=== PATIENT | male | born 1990 | race Caucasian/White ===

== ENCOUNTER 2017-08-06 12:54 | Emergency (ER) | payer MEDICAID ==
[2017-08-06] MEDS ORDERED: cefTRIAXone 1 GM, Lidocaine 1% 2.1 ML IM ONE ×2 (13:20)
[2017-08-06] MEDS ORDERED: Take Home: Clindamycin HCl 150 MG Cap, 6 Cap Pack PO ONE ×2 (13:21)
--- NOTE | 2017-08-06 13:24 | EDM.PDOC ---
ED HPI GENERAL MEDICAL PROBLEM - General Chief Complaint: ENT Problem Stated Complaint: tooth abscess Time Seen by Provider: 08/06/17 13:16 Source of Information: Reports: Patient History Limitations: Reports: No Limitations - History of Present Illness INITIAL COMMENTS - FREE TEXT/NARRATIVE: Patient comes into the emergency department for increased swelling in the right lower jaw related to a tooth abscess. Patient has had poor dentition for greater than 2 years. He has been told multiple times that he needs extractions of multiple teeth. He often has infections that occur requiring antibiotic treatment. He does not have dental insurance and often uses emergency department for his dental cares. He denies brushing his teeth on a regular basis however he does state that he does use mouthwash regular basis. Denies any fever, nausea, diarrhea. He normally does not have much pain when he does get these infections but does notice the increase in swelling and more of a foul breath is noted. Onset: Gradual Right Lower Face Pain Score (Numeric/FACES): 1 - Related Data Allergies Allergy/AdvReac Type Severity Reaction Status Date / Time No Known Allergies Allergy Verified 08/06/17 13:08 Home Meds: Home Meds Clindamycin HCl 300 mg PO TID #7 capsule 08/06/17 [Rx] Past Medical History HEENT History: Reports: Other (See Below) Other HEENT History: Dental carries Social & Family History - Tobacco Use Smoking Status *Q: Current Every Day Smoker Years of Tobacco use: 7 Packs/Tins Daily: 0.9 - Recreational Drug Use Recreational Drug Use: No ED ROS ENT - Review of Systems Review Of Systems: See Below Constitutional: Reports: No Symptoms HEENT: Reports: Other (multiple dental caries, dental decay, multiple tooth fractures of upper jaw) Respiratory: Reports: No Symptoms Cardiovascular: Reports: No Symptoms GI/Abdominal: Reports: No Symptoms Musculoskeletal: Reports: No Symptoms Skin: Reports: No Symptoms Neurological: Reports: No Symptoms ED EXAM, ENT - Physical Exam Exam: See Below Exam Limited By: No Limitations General Appearance: Alert, WD/WN, No Apparent Distress Mouth/Throat: Dental Abcess, Dental Tenderness, Gum Swelling, Other (severe dental decay with green gums noted, multiple tooth fractures of the upper jaw line. Abcess noted lower right jaw line. no redness or warmth noted on the cheek. ). No: Drooling, Dry Mucous Membrane, Lip Swelling, Muffled Voice, Throat Swelling, Tongue Swelling, Tonsillar Erythema, Tonsillar Exudates, Tonsillar Swelling, Uvular Deviation, Uvular Edema Skin: Warm, Dry, Intact Course - Vital Signs Last Recorded V/S: Last Vital Signs Temp 36.3 C 08/06/17 13:05 Pulse 87 08/06/17 13:05 Resp 16 08/06/17 13:05 BP 108/73 08/06/17 13:05 Pulse Ox 97 08/06/17 13:05 Departure - Departure Time of Disposition: 13:35 Disposition: Home, Self-Care 01 Condition: Fair Clinical Impression: Dental caries, Dental abscess, Dental caries extending into dentin - Discharge Information Instructions: Dental Abscess, [id number] Forms: ED Department Discharge Additional Instructions: 1. It is recommended to call [facility] next week and schedule an appointment for multiple extraction of teeth 2. Continue antibiotics until completely gone 3. Increase oral hygiene when possible 4. Decrease sugary beverages 5. Follow-up with primary PCP if worsening symptoms occur 6. Can take [id number] Tylenol and ibuprofen for pain or discomfort 7. Use ice to decrease swelling of the jaw 3 times a day for 20 minute intervals
== END 2017-08-06 13:56 | disposition home or self-care (01) ==
LOC: VM.ED 12:54
DX: K04.7 Periapical abscess without sinus (principal); K03.81 Cracked tooth; K02.9 Dental caries, unspecified; F17.210 Nicotine dependence, cigarettes, uncomplicated
CPT/HCPCS: 96372; 99283; A9270; J0696

== ENCOUNTER 2020-08-15 23:30 | Emergency (ER) | payer SELFPAY ==
[2020-08-15] MEDS ORDERED: Take Home: Amoxicillin/Clavulanate K 875-125 MG Tab, 2 Tab Pack PO ONE (23:42)
[2020-08-15] MEDS ORDERED: Take Home: traMADol 50 MG, 4 Tab Pack PO ONE (23:42)
--- NOTE | 2020-08-16 11:06 | EDM.PDOC ---
ED HPI GENERAL MEDICAL PROBLEM - General Chief Complaint: General Stated Complaint: Tooth Pain Time Seen by Provider: 08/15/20 23:38 Source of Information: Reports: Patient History Limitations: Reports: No Limitations - History of Present Illness INITIAL COMMENTS - FREE TEXT/NARRATIVE: Pt. presents to ER with complaints of dental pain that started a couple of hours before presenting to ER. Denies any trauma. Pt. has a history of advanced tooth decay and frequent dental abscesses/infections. He states that his dentist is [facility], and they are working on a long-term plan regarding his teeth. Denies any fever or chills. No sore thoat. No problems swallowing/managing his oral secretions. 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 [No Known Home Meds] 08/15/20 [History] Past Medical History HEENT History: Reports: Other (See Below) Other HEENT History: Dental carries Social & Family History - Tobacco Use Tobacco Use Status *Q: Current Every Day Tobacco User Years of Tobacco use: 12 Packs/Tins Daily: 1 - Recreational Drug Use Recreational Drug Use: Yes Recreational Drug Type: Reports: Marijuana/Hashish Recreational Drug Use Frequency: Rarely ED ROS GENERAL - Review of Systems Review Of Systems: See Below HEENT: Reports: Dental Pain Respiratory: Reports: No Symptoms Cardiovascular: Reports: No Symptoms Endocrine: Reports: No Symptoms GI/Abdominal: Reports: No Symptoms : Reports: No Symptoms Musculoskeletal: Reports: No Symptoms Skin: Reports: No Symptoms Neurological: Reports: No Symptoms Psychiatric: Reports: No Symptoms ED EXAM, GENERAL - Physical Exam Exam: See Below Exam Limited By: No Limitations General Appearance: Alert, WD/WN, No Apparent Distress Throat/Mouth: Other (Teeth are decayed, discolored and fractured. It appears the pain is originating from a L upper molar. No obvious abscess noted. Adjacent teeth have active decay as well. No unilateral swelling to hypopharyx.) Course - Vital Signs Last Recorded V/S: Last Vital Signs Temp 36.3 C 08/15/20 23:42 Pulse 60 08/15/20 23:42 Resp 17 08/15/20 23:42 BP 134/81 08/15/20 23:42 Pulse Ox 99 08/15/20 23:42 - Orders/Labs/Meds Meds: Medications Discontinued Medications Generic Name Dose Route Start Last Admin Trade Name Kobe PRN Reason Stop Dose Admin Amoxicillin/Clavulanate Potassium 1 packet 08/15/20 23:42 08/15/20 23:47 Take Home: Amoxicillin/Clavulanate K 875-125 Mg Tab, 2 Tab Pack PO 08/15/20 23:43 1 packet ONETIME ONE Administration Tramadol HCl 1 packet 08/15/20 23:42 08/15/20 23:47 Take Home: Tramadol 50 Mg, 4 Tab Pack PO 08/15/20 23:43 1 packet ONETIME ONE Administration Departure - Departure Time of Disposition: 23:58 Disposition: Home, Self-Care 01 Condition: Good Clinical Impression: Dental infection - Discharge Information Instructions: Amoxicillin; Clavulanic Acid Tablets, Dental Abscess, [id number], Ibuprofen Oral Tablets and Capsules, Tramadol tablets, Probiotics Referrals: Elsa Alexandre MD [Primary Care Provider] - Forms: ED Department Discharge Additional Instructions: Augmentin 875mg 1 tab twice daily for 10 days. Finish full course of antibiotics. Ibuprofen 200mg 3 tabs every 6 hours as needed for pain Tramadol 50mg 1 tab every 4-6 hours for severe pain/in addition to ibuprofen Follow-up with dentist JULIA Return to ER if you have increased swelling, trouble swallowing, etc. Sepsis Event Note (ED) - Evaluation Sepsis Screening Result: No Definite Risk - Focused Exam Vital Signs: Vital Signs Temp Pulse Resp BP Pulse Ox 08/15/20 23:42 36.3 C 60 17 134/81 99 - Problem List Review Problem List Initiated/Reviewed/Updated: Yes - Assessment/Plan Plan: Augmentin 875mg 1 tab twice daily for 10 days. Finish full course of antibiotics. Ibuprofen 200mg 3 tabs every 6 hours as needed for pain Tramadol 50mg 1 tab every 4-6 hours for severe pain/in addition to ibuprofen Follow-up with dentist JULIA Return to ER if you have increased swelling, trouble swallowing, etc.
== END 2020-08-15 23:58 | disposition home or self-care (01) ==
LOC: VM.ED 23:30
DX: K04.7 Periapical abscess without sinus (principal); K03.81 Cracked tooth; K02.9 Dental caries, unspecified; Z72.0 Tobacco use
CPT/HCPCS: 99282; 99283; A9270-GY

== ENCOUNTER 2020-08-17 08:50 | Emergency (ER) | payer SELFPAY ==
[2020-08-17] MEDS ORDERED: Take Home: Amoxicillin/Clavulanate K 875-125 MG Tab, 2 Tab Pack PO ONE (09:03)
[2020-08-17] MEDS ORDERED: Take Home: traMADol 50 MG, 4 Tab Pack PO ONE (09:03)
--- NOTE | 2020-08-22 07:51 | EDM.PDOC ---
ED HPI GENERAL MEDICAL PROBLEM - General Chief Complaint: ENT Problem Time Seen by Provider: 08/17/20 08:55 Source of Information: Reports: Patient History Limitations: Reports: No Limitations - History of Present Illness INITIAL COMMENTS - FREE TEXT/NARRATIVE: Pt. presents to ER with complaints of continued dental pain. He was seen in ER the previous day. He was given take home packs of augmentin and tramadol, and scripts for the same. Pt. did not get to the pharmacy in time and presented to ER a second time. Pt. denied any fever or chills. No throat tightness or trouble swallowing. No fever or chills. Area of pain is still the L upper posterior teeth. He has a history of poor dentition and severe tooth decay. Onset Date: 08/17/20 Location: Reports: Face Associated Symptoms: Denies: Fever/Chills Left Face/Facial Pain Score (Numeric/FACES): 8 - Related Data Allergies Allergy/AdvReac Type Severity Reaction Status Date / Time No Known Allergies Allergy Verified 08/17/20 08:55 Home Meds: Home Meds . [No Known Home Meds] 08/15/20 [History] Past Medical History HEENT History: Reports: Other (See Below) Other HEENT History: Dental carries Social & Family History - Tobacco Use Tobacco Use Status *Q: Current Every Day Tobacco User Years of Tobacco use: 10 Packs/Tins Daily: 1 - Recreational Drug Use Recreational Drug Use: No ED ROS GENERAL - Review of Systems Review Of Systems: See Below Constitutional: Reports: No Symptoms HEENT: Reports: Dental Pain Respiratory: Reports: No Symptoms Cardiovascular: Reports: No Symptoms Endocrine: Reports: No Symptoms GI/Abdominal: Reports: No Symptoms : Reports: No Symptoms Musculoskeletal: Reports: No Symptoms Skin: Reports: No Symptoms Neurological: Reports: No Symptoms Psychiatric: Reports: No Symptoms Hematologic/Lymphatic: Reports: No Symptoms Immunologic: Reports: No Symptoms ED EXAM, GENERAL - Physical Exam Exam: See Below Exam Limited By: No Limitations General Appearance: Alert, WD/WN, Moderate Distress Throat/Mouth: Other (severe tooth decay. Most teeth are affected. No obvious large abscess or unilateral hypopharynx edema noted.) Neck: Lymphadenopathy (L), Lymphadenopathy (R) Course - Vital Signs Last Recorded V/S: Last Vital Signs Temp 36.9 C 08/17/20 08:55 Pulse 63 04/04/21 08:55 Resp 16 08/17/20 08:55 BP 115/83 08/17/20 08:55 Pulse Ox 99 08/17/20 08:55 - Orders/Labs/Meds Meds: Medications Discontinued Medications Generic Name Dose Route Start Last Admin Trade Name Kobe PRN Reason Stop Dose Admin Amoxicillin/Clavulanate Potassium 1 packet 08/17/20 09:03 08/17/20 09:10 Take Home: Amoxicillin/Clavulanate K 875-125 Mg Tab, 2 Tab Pack PO 08/17/20 09:04 1 packet ONETIME ONE Administration Tramadol HCl 1 packet 08/17/20 09:03 08/17/20 09:10 Take Home: Tramadol 50 Mg, 4 Tab Pack PO 08/17/20 09:04 1 packet ONETIME ONE Administration Departure - Departure Time of Disposition: 09:20 Disposition: Home, Self-Care 01 Clinical Impression: Dental infection - Discharge Information Instructions: Amoxicillin; Clavulanic Acid Tablets, Tramadol tablets Forms: ED Department Discharge Additional Instructions: Augmentin 875mg 1 twice daily for 10 days Tramadol 50mg 1 every 4-6 hours as needed for pain Ibuprofen 200mg 3 tabs every 6 hours for pain Follow-up in clinic [facility] for extraction/follow-up. Sepsis Event Note (ED) - Evaluation Sepsis Screening Result: No Definite Risk - Problem List Review Problem List Initiated/Reviewed/Updated: Yes - Assessment/Plan Plan: Augmentin 875mg 1 twice daily for 10 days Tramadol 50mg 1 every 4-6 hours as needed for pain Ibuprofen 200mg 3 tabs every 6 hours for pain Follow-up in clinic [facility] for extraction/follow-up.
== END 2020-08-17 09:12 | disposition home or self-care (01) ==
LOC: VM.ED 08:50
DX: K04.7 Periapical abscess without sinus (principal); K02.9 Dental caries, unspecified; Z72.0 Tobacco use
CPT/HCPCS: 99282; A9270-GY

== ENCOUNTER 2021-05-24 08:01 | Emergency (ER) | payer MEDICAID ==
[2021-05-24] MEDS ORDERED: Take Home: Clindamycin HCl 150 MG Cap, 6 Cap Pack PO ONE (08:18)
[2021-05-24] MEDS ORDERED: Clindamycin HCl 150 MG Cap PO ONE (08:19)
[2021-05-24 08:26] VITALS: BP 122/85; PULSE 61
--- NOTE | 2021-05-24 08:27 | EDM.PDOC ---
ED HPI GENERAL MEDICAL PROBLEM - General Stated Complaint: MOUTH PAIN Time Seen by Provider: 05/24/21 08:05 Source of Information: Reports: Patient History Limitations: Reports: No Limitations - History of Present Illness INITIAL COMMENTS - FREE TEXT/NARRATIVE: Patient presents to the Ed for dental pain. He has a significant history of dental caries and fractures teeth at the gingiva. He has had a consultation with [facility] as he needs dental extractions and is saving his money for this. He states last week he was having pain in the right upper jaw and now he is having pain in the left lower jaw. NO fevers. He is taking aleve or ibuprofen for the pain. Denies wanting anything for the pain , but is concerned about his need for antibiotics Left Lower Tooth/Teeth Pain Score (Numeric/FACES): 4 - Related Data Allergies Allergy/AdvReac Type Severity Reaction Status Date / Time No Known Allergies Allergy Verified 05/24/21 08:26 Home Meds: Home Meds Clindamycin HCl 300 mg PO TID #30 capsule 05/24/21 [Rx] Past Medical History HEENT History: Reports: Other (See Below) Other HEENT History: Dental carries ED ROS ENT - Review of Systems Review Of Systems: See Below Constitutional: Reports: No Symptoms HEENT: Reports: Dental Pain. Denies: Sinus Problem, Throat Pain, Throat Swelling Respiratory: Reports: No Symptoms Cardiovascular: Reports: No Symptoms Endocrine: Reports: No Symptoms GI/Abdominal: Reports: No Symptoms : Reports: No Symptoms Musculoskeletal: Reports: No Symptoms Skin: Reports: No Symptoms Neurological: Reports: No Symptoms Psychiatric: Reports: No Symptoms Hematologic/Lymphatic: Reports: No Symptoms ED EXAM, ENT - Physical Exam Exam: See Below Exam Limited By: No Limitations General Appearance: Alert, WD/WN, No Apparent Distress Eye Exam: Bilateral Eye: EOMI, Normal Inspection, PERRL Ears: Normal External Exam Nose: Normal Inspection Mouth/Throat: Other (multiple teeth broken at the gingival, decay noted of the teeth. gingival swelling right upper, loeft upper, but not bear abscesses., NO ) Course - Vital Signs Last Recorded V/S: Last Vital Signs Temp 36.6 C 05/24/21 08:05 Pulse 61 05/24/21 08:05 Resp 18 05/24/21 08:05 BP 122/85 05/24/21 08:05 Pulse Ox 99 05/24/21 08:05 - Orders/Labs/Meds Meds: Medications Discontinued Medications Generic Name Dose Route Start Last Admin Trade Name Kobe PRN Reason Stop Dose Admin Clindamycin HCl 1 packet 05/24/21 08:18 05/24/21 08:30 Take Home: Clindamycin Hcl 150 Mg Cap, 6 Cap Pack PO 05/24/21 08:19 1 packet ONETIME ONE Administration Clindamycin HCl 300 mg 05/24/21 08:19 05/24/21 08:30 Clindamycin Hcl 150 Mg Cap PO 05/24/21 08:20 300 mg ONETIME ONE Administration - Re-Assessments/Exams Free Text/Narrative Re-Assessment/Exam: 05/24/21 13:08 given clindamycin po, need to take 300 mg tid for 10 days, use sensodyne toothpaste on it. follow up with oral surgeon. did not want pain medications Departure - Departure Time of Disposition: 08:20 Disposition: Home, Self-Care 01 Condition: Good Clinical Impression: Dental caries, Dental infection - Discharge Information *PRESCRIPTION DRUG MONITORING PROGRAM REVIEWED*: Yes *COPY OF PRESCRIPTION DRUG MONITORING REPORT IN PATIENT ROSEANNE: No Prescriptions: Clindamycin HCl 300 mg PO TID #30 capsule Instructions: Dental Caries, Adult, [id number] Referrals: Elsa Alexandre MD [Primary Care Provider] - Forms: ED Department Discharge Additional Instructions: you were given a dose of clindamycin in the ED. You are then given pills for yo ur next three doses and a prescription for 10 full days of antibiotics. It is important to schedule dental extractions. These broken teeth can make you ill. return to the ED for facial swelling or fevers. Take aleve, two tablets every 12 hours OR ibuprofen 600 mg every 6 hours. Do not take these medications together Purchase sensodyne toothpaste and place some of the toothpaste on the teeth that are sensitive to the cold or hot. Sepsis Event Note (ED) - Focused Exam Vital Signs: Vital Signs Temp Pulse Resp BP Pulse Ox 05/24/21 08:05 36.6 C 61 18 122/85 99
== END 2021-05-24 08:35 | disposition home or self-care (01) ==
LOC: VM.ED 08:01
DX: K04.7 Periapical abscess without sinus (principal); K02.9 Dental caries, unspecified
CPT/HCPCS: 99282; 99283; A9270

== ENCOUNTER 2024-03-13 17:17 | Emergency (ER) | payer SELFPAY ==
[2024-03-13] MEDS: Take Home: Amoxicillin/Clavulanate K 875-125 MG Tab, 2 Tab Pack PO ONE (18:25)
== END 2024-03-13 18:28 | disposition home or self-care (01) ==
LOC: VM.ED 17:17
DX: K04.7 Periapical abscess without sinus (principal); K02.9 Dental caries, unspecified
CPT/HCPCS: 99282; 99283; A9270-GY

== ENCOUNTER 2024-04-03 20:26 | Emergency (ER) | payer SELFPAY ==
[2024-04-03] MEDS: Clindamycin HCl 150 MG Cap PO ONE (20:42)
== END 2024-04-03 20:44 | disposition home or self-care (01) ==
LOC: VM.ED 20:26
DX: K02.9 Dental caries, unspecified (principal)
CPT/HCPCS: 99282; 99283; A9270